=== PATIENT | female | born 1945 | race Caucasian/White ===

== ENCOUNTER 2020-01-15 08:31 | Day surgery (SDC) | payer MEDICARE, OTHER ==
[~2020-01-15] VITALS: Ht 127 cm; Wt 78.2 kg
[2020-01-15] MEDS ORDERED: MOBIC15 MG PO (08:51)
[2020-01-15] MEDS ORDERED: LIALDA 1.2 GM1.2 GM PO (08:52)
[2020-01-15] MEDS ORDERED: K-TAB10 PO (08:52)
[2020-01-15] MEDS ORDERED: SINGULAIR 110 MG/TAB PO (08:52)
[2020-01-15] MEDS ORDERED: ZOCOR 40MG40 MG PO (08:53)
[2020-01-15] MEDS ORDERED: ZYRTEC 10MG10 MG PO (08:53)
[2020-01-15] MEDS ORDERED: HYTRIN 2MG CAPSU2 MG PO (08:54)
[2020-01-15] MEDS ORDERED: HCTZ 25MG TAB25 MG PO (08:54)
[2020-01-15] MEDS ORDERED: RT ADVAIR 128 DISKUS IH (08:55)
[2020-01-15] MEDS ORDERED: RETIN A TP (08:55)
[2020-01-15 10:15] VITALS: BP 135/71; PULSE 82; TEMP 97.9
--- NOTE | 2020-01-15 10:15 | NUR ---
Patient brought back to [facility] via cart. Ambulated to chair without difficulty. Placed on monitors, vital signs stable. Report recieved from [facility]. Denies nausea or pain. Requesting coffee, juice, toast, and applesauce. at bedside. Will continue to monitor.
[2020-01-15 10:30] VITALS: BP 122/73; PULSE 89
--- NOTE | 2020-01-15 10:30 | NUR ---
Patient tolerating food and drink without difficulty. Vitals stable. Warm blanket provided. Will continue to monitor.
[2020-01-15 10:35] VITALS: BP 125/74; PULSE 84; TEMP 97.4
[2020-01-15 10:45] VITALS: BP 116/77; PULSE 84
--- NOTE | 2020-01-15 10:45 | NUR ---
Dr. Buchanan at bedside to explain results. Will continue to monitor.
[2020-01-15 11:00] VITALS: BP 123/74; PULSE 91
--- NOTE | 2020-01-15 11:00 | NUR ---
Patient states she is feeling well and would like to go home. IV removed to right forearm without difficulty. Pt to get dressed at this time.
--- NOTE | 2020-01-15 11:15 | NUR ---
Discharge instructions reviewed with patient and . All questions answered.
--- NOTE | 2020-01-15 11:25 | NUR ---
Patient brought down to lobby via wheel chair. To be driven home by .
== END 2020-01-15 11:25 | disposition home or self-care (01) ==
LOC: SDCO 08:31
DX: K50.80 Crohn's disease of both small and large intestine without complications (principal); K63.3 Ulcer of intestine; K64.2 Third degree hemorrhoids; K57.30 Diverticulosis of large intestine without perforation or abscess without bleeding; D64.9 Anemia, unspecified; J45.909 Unspecified asthma, uncomplicated; I10 Essential (primary) hypertension; E78.00 Pure hypercholesterolemia, unspecified; Z79.899 Other long term (current) drug therapy; Z88.8 Allergy status to other drugs, medicaments and biological substances; Z88.2 Allergy status to sulfonamides
CPT/HCPCS: J2250; J3010; J7030